=== PATIENT | female | born 1970 | race Caucasian/White ===

== ENCOUNTER → 2020-09-26 14:40 | Outpatient (BNVA) | payer OTHER, SELFPAY | PROVIDERS: PCP Physician Assistant; Visit Provider Urology | DX: Z76.89 Persons encountering health services in other specified circumstances (principal) ==

== ENCOUNTER → 2020-11-07 08:25 | Outpatient (BNVA) | payer OTHER, SELFPAY | PROVIDERS: PCP Physician Assistant; Referring Provider Physician Assistant; Visit Provider Internal Medicine Gastroenterology | DX: Z76.89 Persons encountering health services in other specified circumstances (principal) ==

== ENCOUNTER → 2021-02-06 09:19 | Outpatient (BNVA) | payer OTHER, SELFPAY | PROVIDERS: PCP Physician Assistant; Visit Provider Internal Medicine Gastroenterology ==

== ENCOUNTER → 2021-06-26 09:29 | Outpatient (BNVA) | payer OTHER, SELFPAY | PROVIDERS: PCP Physician Assistant; Visit Provider Internal Medicine Gastroenterology ==

== ENCOUNTER 2021-07-29 14:05 | Outpatient (REF) | payer OTHER, SELFPAY ==
--- NOTE | ~2021-07-29 | MR_ITS ---
EXAMINATION: MR ABDOMEN WITHOUT AND WITH CONTRAST CLINICAL INFORMATION: Chronic pancreatitis. COMPARISON: Previous MRI of the abdomen April [address] April 2019. TECHNIQUE: MR abdomen was performed without and with use of 5 mL intravenous Gadavist gadolinium contrast. Postcontrast images are performed in multiphase dynamic sequences. Imaging was performed in 3 planes. MRCP sequences were also performed. FINDINGS: LUNG BASES: There are nodules or areas atelectasis seen at the lung bases. Largest area measures 1.5 x 2.5 cm in the right lower lobe. LIVER, GALLBLADDER, AND BILIARY TREE: The liver is normal in size and contour. There is mild signal loss in the liver on pap-ts-blolg sequences suggestive of infiltration. No focal liver lesion is seen. The gallbladder is normal. There is no intrahepatic or extrahepatic biliary duct dilatation. PANCREAS: There are innumerable small cysts seen in the pancreas; many of these are near and above the main pancreatic duct. The largest cysts are in the neck of the pancreas and measure 5 mm. These again probably represent dilated biliary radicles related to previous pancreatitis. The pancreas is otherwise normal. The main pancreatic duct is normal. No pancreatic mass or abnormal signal is seen. Peripancreatic fat is normal. SPLEEN: Normal. ADRENAL GLANDS: Normal. KIDNEYS AND URETERS: There are small right renal cysts. There is a 5 mm probable complex cyst in the lower pole the left kidney. This is not well visualized on T1-weighted sequences, low signal on T2-weighted sequences and demonstrates no evidence of enhancement. GASTROINTESTINAL TRACT: No bowel obstruction. No ascites or fluid collection. ABDOMINAL WALL: No significant hernia is appreciated. LYMPH NODES: No lymphadenopathy. VASCULAR: Unremarkable. OSSEOUS STRUCTURES: Marrow signal normal. MR/MR abdomen wo/w con IMPRESSION: Innumerable small cysts in the pancreas adjacent to the main pancreatic duct, probably representing dilated biliary radicles related to previous pancreatitis. This is similar to April 2019 exam. Pulmonary nodules or areas of atelectasis at the lung bases. Correlation with patient's clinical history recommended. This could be better evaluated with chest CT scan if clinically indicated.
== END 2021-07-29 14:06 | disposition home or self-care (01) ==
LOC: HO.MRI 14:05
PROVIDERS: PCP Physician Assistant; Visit Provider Internal Medicine Gastroenterology
DX: K86.1 Other chronic pancreatitis (principal); K86.2 Cyst of pancreas
CPT/HCPCS: 74183; A9585

== ENCOUNTER → 2021-10-01 08:31 | Outpatient (BNVA) | payer OTHER, SELFPAY | PROVIDERS: PCP Physician Assistant; Visit Provider Urology ==

== ENCOUNTER → 2021-12-28 09:04 | Outpatient (BNVA) | payer OTHER, SELFPAY | PROVIDERS: PCP Physician Assistant; Visit Provider Internal Medicine Gastroenterology ==

== ENCOUNTER 2022-09-21 15:47 | Outpatient (REF) | payer OTHER, SELFPAY ==
--- NOTE | ~2022-09-21 | US_ITS ---
EXAMINATION: US RETROPERITONEAL LIMITED (RENAL ONLY) CLINICAL INFORMATION: Cyst of kidney, acquired. COMPARISON: MR abdomen without and with contrast most recent 07/29/2021. TECHNIQUE: Real-time imaging of the kidneys. FINDINGS: RIGHT KIDNEY: 10.3 x 4.5 x 5.2 cm (SAG x AP x TRV). The kidney is normal in size, contour, and echogenicity. Renal cortical thickness is normal. No calculi or focal parenchymal lesions. No hydronephrosis. LEFT KIDNEY: 9.5 x 4.2 x 4.4 cm (SAG x AP x TRV). The kidney is normal in size, contour, and echogenicity. Renal cortical thickness is normal. There is a small 3 x 4 mm simple cyst in the upper pole. No renal calculi or hydronephrosis. US/US renal BI IMPRESSION: Solitary 3 x 4 mm simple cyst in the upper pole of the left kidney. Other renal cysts seen by MRI are not appreciated by ultrasound.
== END 2022-09-21 15:48 | disposition home or self-care (01) ==
LOC: HO.US 15:47
PROVIDERS: Visit Provider Urology
DX: N28.1 Cyst of kidney, acquired (principal)
CPT/HCPCS: 76775

== ENCOUNTER 2022-10-22 08:05 | Outpatient (REF) | payer OTHER, SELFPAY ==
--- NOTE | ~2022-10-22 | MR_ITS ---
EXAMINATION: MR ABDOMEN WITHOUT AND WITH CONTRAST CLINICAL INFORMATION: Renal cyst. COMPARISON: Previous MR of the abdomen most recent July 2021 and renal ultrasound 09/21/2022. TECHNIQUE: MR abdomen was performed without and with use of 5 mL intravenous Gadavist gadolinium contrast. Postcontrast images are performed in multiphase dynamic sequences. Imaging was performed in 3 planes. FINDINGS: LUNG BASES: Increasing abnormal parenchymal density in the right lower lobe. Follow-up chest x-ray or chest CT recommended. The lungs appear well inflated. LIVER, GALLBLADDER, AND BILIARY TREE: The liver is normal in size, smooth in contour, and normal in signal. No focal hepatic lesion or biliary ductal dilatation is present. The gallbladder is not seen and has presumably been removed. PANCREAS: There are multiple small cysts in the pancreas near the main pancreatic duct similar to previous exam and probably represents dilated pancreatic radicles related to previous pancreatitis. No suspicious pancreatic lesion. SPLEEN: Normal. ADRENAL GLANDS: Normal. KIDNEYS AND URETERS: The kidneys are normal in size, shape, and enhance symmetrically. There are multiple small subcentimeter bilateral renal cysts. The previously identified 4 mm cyst in the lower pole of the left kidney is no longer seen. No hydronephrosis. No perinephric stranding. GASTROINTESTINAL TRACT: No bowel obstruction. No ascites or fluid collection. ABDOMINAL WALL: No significant hernia is appreciated. LYMPH NODES: No lymphadenopathy. VASCULAR: Unremarkable. OSSEOUS STRUCTURES: Marrow signal normal. MR/MR abdomen wo/w con IMPRESSION: Small bilateral renal cysts. Previously identified 4 mm cyst in the lower pole of the left kidney is no longer seen. Stable small pancreatic cysts probably representing dilated pancreatic duct radicles related to pancreatitis. Increasing abnormal parenchymal density in the right lower lobe. Follow-up chest x-ray or chest CT recommended.
== END 2022-10-22 08:06 | disposition home or self-care (01) ==
LOC: HO.MRI 08:05
PROVIDERS: Visit Provider Urology
DX: N28.1 Cyst of kidney, acquired (principal)
CPT/HCPCS: 74183

== ENCOUNTER → 2022-12-01 14:46 | Outpatient (BNVA) | payer OTHER, SELFPAY | PROVIDERS: PCP Physician Assistant; Visit Provider Urology | DX: N28.1 Cyst of kidney, acquired (principal) ==

== ENCOUNTER → 2023-02-14 14:11 | Outpatient (BNVA) | payer OTHER, SELFPAY | PROVIDERS: PCP Physician Assistant; Visit Provider Internal Medicine Gastroenterology | DX: Z13.89 Encounter for screening for other disorder (principal) ==

== ENCOUNTER 2023-07-25 14:23 | Outpatient (AMB) | payer OTHER, SELFPAY ==
--- NOTE | 2023-07-25 14:24 | A.OFFVIS_ITS ---
Intake Intake Visit Reasons: 4 month fu Intake Note: Patient 4 month follow up Patient denies any GI issues. [employer] Bi Developer Required: No Allergies codeine [CODEINE] Allergy (Mild, Verified 07/25/23 14:23) RASH HPI 4 month fu HPI Details ? 53 yr old f being called for f/u RECAP: ? She had been having diarrhea when initially seen 2018 ? she had egd/colonoscopy with polyps removed but no colitis or microscopic colitis ? imaging revealed chronic panc changes, igG4 was elevated and ESR high too ? MRI and Ct chest done, pancreas stable, but new lung nodule right lung --suspicious for neoplasia, --had bx and confirmed to have lung cancer, saw oncologist Inez ? she has been long time smoker ? completed XRT and chemo for lung ca and being monitored ? she did have sharp epigastric pain, once or twice every few weeks, can be severe and last for few hours ? not worse or related to food, can be better with stretching ? bloating ? denied diarrhea or constipation ? appetite had poor ? sleep is variable ? stopped trental due to diarrhea, back on creon ? stress is manageable labs: ? cbc normal, BMp normal, ESR mild raised, IgG4 mild raised, CRP neg ? stool fat neg, elastase normal Other tests: ? CT scan at [facility] recently chronic pancreatitis, no cancer recurrence ? GES 05/21/2020--nml, neg for gastroparesis ? MRI 04/2020-- panc cysts, complex hemorrhagic cysts left kidney ? EGD: DONE FOR ONGOING EARLY SATIETY--06/2020--SHORT seg barretts. reduced gastric motility noted ? bx--barretts, no dysplasia, no amyloid noted, diffuse staining for IgG4 in GEJ!no sign activity in duodenum or stomach, maybe minor in duodenum MRI 07/2020-- stable pancreas with dilated radicles She was referred to urology due to complex kidney cysts tried her on levsin for abdo pain considered trial of budeosnide if ongoing sx ? INTERIM: she has responded well to lung cancer treatment appetite has remained poor weight is stable no constipation or diarrhea she is on mag supplements she is only on pembrolizumab she has been taking the creon EXAM: GENERAL: The patient is thin, good color Assessment & Plan (1) Pancreatic cyst: (2) Renal cyst: (3) Colon polyps: (4) Chronic pancreatitis: ? 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 PFSH Medical History Cyst of ovary Surgical History History of colonoscopy Hx of endoscopy Hx of tubal ligation Hx of ultrasound guided needle biopsy of lung Family History Mother No problems noted. Father Hx of cancer of lung Social History Alcohol intake: never Cigarette Packs Per Day: 1 Cigarettes Per Day: 20 Telehealth Telehealth Location of provider rendering services: practice address Location of patient: address on file Patient Identification confirmed using: Name, : Yes Telehealth method: video Patient verbally consented to treatment: Yes Patient verbally consented to billing insurance company: Yes Patient informed of any privacy concerns related to visit: Yes Minutes spent on Phone/Video with Pt.: 7 Coding Level of Care Code Tele Est Pt Level 3 (29175) Diagnoses
== END 2023-07-25 16:32 | disposition home or self-care (01) ==
LOC: HO.HGI 14:23
PROVIDERS: PCP Physician Assistant; Visit Provider Internal Medicine Gastroenterology
DX: K86.2 Cyst of pancreas (principal); N28.1 Cyst of kidney, acquired; D12.6 Benign neoplasm of colon, unspecified; K86.1 Other chronic pancreatitis
CPT/HCPCS: 99213

== ENCOUNTER → 2023-07-25 14:23 | Outpatient (BNVA) | payer OTHER, SELFPAY | PROVIDERS: PCP Physician Assistant; Visit Provider Internal Medicine Gastroenterology ==

== ENCOUNTER 2023-10-31 13:22 | Outpatient (AMB) | payer OTHER, SELFPAY ==
[2023-10-31 13:29] VITALS: BP 103/62; PULSE 109; BMI 19.1
--- NOTE | 2023-10-31 13:29 | A.OFFVIS_ITS ---
Intake Vital Signs 10/31/23 13:29 Height 5 ft 3 in Weight 108 lb 0.424 oz BMI 19.1 BP 103/62 Blood Pressure Location Lt brachial Position Sitting Pulse 109 H Intake Visit Reasons: 4 month follow up Intake Note: Larissa presents in the office as a follow up. CC: Discomfort in her stomach, she gets full fast after eating and denies any irregular bowel movements. Allergies codeine [CODEINE] Allergy (Mild, Verified 10/31/23 13:31) RASH HPI 4 month follow up HPI Details 53 yr old f here for f/u RECAP: ? She had been having diarrhea when initially seen 2018 ? she had egd/colonoscopy with polyps removed but no colitis or microscopic colitis ? imaging revealed chronic panc changes, igG4 was elevated and ESR high too ? MRI and Ct chest done, pancreas stable, but new lung nodule right lung --suspicious for neoplasia, --had bx and confirmed to have lung cancer, saw oncologist Inez ? she has been long time smoker ? completed XRT and chemo for lung ca and being monitored ? she did have sharp epigastric pain, once or twice every few weeks, can be severe and last for few hours ? not worse or related to food, can be better with stretching ? bloating ? denied diarrhea or constipation ? appetite had poor ? sleep is variable ? stopped trental due to diarrhea, back on creon ? stress is manageable labs: ? cbc normal, BMp normal, ESR mild raised, IgG4 mild raised, CRP neg ? stool fat neg, elastase normal Other tests: ? CT scan at [facility] recently chronic pancreatitis, no cancer recurrence ? GES 05/21/2020--nml, neg for gastroparesis ? MRI 04/2020-- panc cysts, complex hemorrhagic cysts left kidney ? EGD: DONE FOR ONGOING EARLY SATIETY--06/2020--SHORT seg barretts. reduced gastric motility noted ? bx--barretts, no dysplasia, no amyloid noted, diffuse staining for IgG4 in GEJ!no sign activity in duodenum or stomach, maybe minor in duodenum MRI 07/2020-- stable pancreas with dilated radicles She was referred to urology due to complex kidney cysts tried her on levsin for abdo pain considered trial of budeosnide if ongoing sx she had recurrence of lung ca and now on kaytruda ? INTERIM: she has fatigue epigastric fullness and satiety no nausea or vomiting weight is stable no constipation or diarrhea might have some depression, EXAM: GENERAL: The patient is thin VITAL SIGNS:see workflow HEENT: Nonicteric sclerae, PERRLA, EOMI. Oropharynx clear. Moist mucous membranes. Conjunctivae appear well perfused. No thyroid mass. CHEST: Chest wall is nontender. HEART: Regular rate and rhythm without murmurs. LUNGS: Clear to auscultation bilaterally, but reeduced A/E b/l ABDOMEN: Soft, positive bowel sounds, tender epigastrium, no organomegaly.no flank tenderness SKIN: No rash, no excessive bruising, petechiae, or purpura. NEUROLOGIC: Cranial nerves II-XII intact without motor/sensory deficit. Assessment & Plan (1) Pancreatic cyst: (2) Renal cyst: (3) Colon polyps: (4) Chronic pancreatitis: ? 5/ early satiety probably functional dyspepsia 6/ relapse of lung cancer--on keytruda PLAN: 1/ Hold off on further GI IX for the mom ent, if remains in remission we can review at the next visit 2/ add remeron and see fi can help her g astric issues, weight gain and sleep --start low and titrate as tolerated --other option is marinol ? ? PFSH Medical History Cyst of ovary Surgical History History of colonoscopy Hx of endoscopy Hx of tubal ligation Hx of ultrasound guided needle biopsy of lung Family History Mother No problems noted. Father Hx of cancer of lung Social History Alcohol intake: never Cigarette Packs Per Day: 1 Cigarettes Per Day: 20 Physical Exam Vital Signs: Last Vital Signs Pulse 109 H 10/31/23 13:29 BP 103/62 10/31/23 13:29 BMI result Body Mass Index 19.1 Assessment & Plan Assessment & Plan (1) Pancreatic cyst: Code(s): K86.2 - Cyst of pancreas (2) Lung cancer: Code(s): C34.90 - Malignant neoplasm of unspecified part of unspecified bronchus or lung Plan: see above Plan see above Medications: New mirtazapine (Remeron) 15 mg PO BEDTIME 30 tabs 1RF Coding Level of Care Code Est Pt Level 3 (76659) Diagnoses Pancreatic cyst K86.2 Lung cancer C34.90
== END 2023-10-31 14:03 | disposition home or self-care (01) ==
PROVIDERS: PCP Physician Assistant; Visit Provider Internal Medicine Gastroenterology
DX: K86.2 Cyst of pancreas (principal); C34.90 Malignant neoplasm of unspecified part of unspecified bronchus or lung
CPT/HCPCS: 99213

== ENCOUNTER → 2023-10-31 13:22 | Outpatient (BNVA) | payer OTHER, SELFPAY | PROVIDERS: PCP Physician Assistant; Visit Provider Internal Medicine Gastroenterology ==

== ENCOUNTER 2024-02-06 13:37 | Outpatient (AMB) | payer MEDICAID, SELFPAY ==
--- NOTE | 2024-02-06 13:44 | MHC.OFFVIS ---
Intake Vital Signs 02/06/24 13:48 Height 5 ft 3 in Weight 110 lb 3.698 oz BMI 19.5 BP 84/62 L Blood Pressure Location Lt brachial Position Sitting Pulse 91 Intake Visit Reasons: 3 mnth follow up Intake Note: Larissa presents in the office as a 3 month follow up. CC: She states that she is not having any concerns at this time. Allergies codeine [CODEINE] Allergy (Mild, Verified 02/06/24 13:49) RASH HPI 3 mnth follow up HPI Details 53 yr old f here for f/u RECAP: She had been having diarrhea when initially seen 2018 she had egd/colonoscopy with polyps removed but no colitis or microscopic colitis imaging revealed chronic panc changes, igG4 was elevated and ESR high too MRI and Ct chest done, pancreas stable, but new lung nodule right lung --suspicious for neoplasia, --had bx and confirmed to have lung cancer, saw oncologist Inez she has been long time smoker completed XRT and chemo for lung ca and being monitored she did have sharp epigastric pain, once or twice every few weeks, can be severe and last for few hours not worse or related to food, can be better with stretching bloating denied diarrhea or constipation appetite had poor sleep is variable stopped trental due to diarrhea, back on creon stress is manageable labs: cbc normal, BMp normal, ESR mild raised, IgG4 mild raised, CRP neg stool fat neg, elastase normal Other tests: CT scan at [facility] recently chronic pancreatitis, no cancer recurrence GES 05/21/2020--nml, neg for gastroparesis MRI 04/2020-- panc cysts, complex hemorrhagic cysts left kidney EGD: DONE FOR ONGOING EARLY SATIETY--06/2020--SHORT seg barretts. reduced gastric motility noted bx--barretts, no dysplasia, no amyloid noted, diffuse staining for IgG4 in GEJ!no sign activity in duodenum or stomach, maybe minor in duodenum MRI 07/2020-- stable pancreas with dilated radicles She was referred to urology due to complex kidney cysts tried her on levsin for abdo pain considered trial of budeosnide if ongoing sx she had recurrence of lung ca and now on kaytruda INTERIM: she did not tolerate 15 mg mirtazepine but was ok with 7.5 mg her appetite is better she is doing well with kaytruda, she has liver lesion being watched, ? fatty deposit no nausea or vomiting weight is stable no constipation or diarrhea EXAM: GENERAL: The patient is thin VITAL SIGNS:see workflow HEENT: Nonicteric sclerae, PERRLA, EOMI. Oropharynx clear. Moist mucous membranes. Conjunctivae appear well perfused. No thyroid mass. CHEST: Chest wall is nontender. HEART: Regular rate and rhythm without murmurs. LUNGS: Clear to auscultation bilaterally, but reeduced A/E b/l ABDOMEN: Soft, positive bowel sounds, tender epigastrium, no organomegaly.no flank tenderness SKIN: No rash, no excessive bruising, petechiae, or purpura. NEUROLOGIC: Cranial nerves II-XII intact without motor/sensory deficit. Assessment & Plan (1) Pancreatic cyst: (2) Renal cyst: (3) Colon polyps: (4) Chronic pancreatitis: 5/ early satiety probably functional dyspepsia 6/ relapse of lung cancer--on keytruda PLAN: 1/ Hold off on further GI IX for the moment, has liver lesion being monitored, and will be on kaytruda for 1 yr at least, can review egd and colo in [facility] 2/ seems stable in terms of weight right now, can restart low dose mirtazepine or marinol PFSH Medical History Cyst of ovary Surgical History History of colonoscopy Hx of endoscopy Hx of tubal ligation Hx of ultrasound guided needle biopsy of lung Family History Mother No problems noted. Father Hx of cancer of lung Social History Alcohol intake: never Cigarette Packs Per Day: 1 Cigarettes Per Day: 20 Physical Exam Vital Signs: Last Vital Signs Pulse 91 02/06/24 13:48 BP 84/62 L 02/06/24 13:48 BMI result Body Mass Index 19.5 Assessment & Plan Assessment & Plan (1) Chronic pancreatitis: Code(s): K86.1 - Other chronic pancreatitis Plan: PLAN: 1/ Hold off on further GI IX for the moment, has liver lesion being monitored, and will be on kaytruda for 1 yr at least, can review egd and colo in [facility] 2/ seems stable in terms of weight right now, can restart low dose mirtazepine or marinol Medications: Refilled pantoprazole 40 mg PO DAILY 30 tabs 3RF Coding Level of Care Code Est Pt Level 3 (96178) Diagnoses Chronic pancreatitis K86.1
[2024-02-06 13:48] VITALS: BP 84/62; PULSE 91; BMI 19.5
== END 2024-02-06 14:09 | disposition home or self-care (01) ==
PROVIDERS: PCP Physician Assistant; Visit Provider Internal Medicine Gastroenterology
DX: K86.1 Other chronic pancreatitis (principal)
CPT/HCPCS: 99213

== ENCOUNTER → 2024-02-06 13:37 | Outpatient (BNVA) | payer OTHER, SELFPAY | PROVIDERS: PCP Physician Assistant; Visit Provider Internal Medicine Gastroenterology ==

== ENCOUNTER 2024-06-08 11:46 | Outpatient (AMB) | payer OTHER, SELFPAY ==
--- NOTE | 2024-06-08 11:49 | MHC.OFFVIS ---
Vital Signs 06/08/24 11:52 Height 5 ft 3 in Weight 114 lb 10.246 oz BMI 20.3 BP 91/58 L Blood Pressure Location Lt brachial Position Sitting Pulse 80 Intake Visit Reasons: 4 month follow up Intake Note: Larissa presents in the office as a 4 month follow up. CC: She states that she is not having any concerns. 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 Allergies codeine [CODEINE] Allergy (Mild, Verified 06/08/24 11:52) RASH HPI HPI 4 month follow up: Details: 54 yr old f here for f/u RECAP: She had been having diarrhea when initially seen 2018 she had egd/colonoscopy with polyps removed but no colitis or microscopic colitis imaging revealed chronic panc changes, igG4 was elevated and ESR high too MRI and Ct chest done, pancreas stable, but new lung nodule right lung --suspicious for neoplasia, --had bx and confirmed to have lung cancer, saw oncologist Inez she has been long time smoker completed XRT and chemo for lung ca and being monitored she did have sharp epigastric pain, once or twice every few weeks, can be severe and last for few hours not worse or related to food, can be better with stretching bloating denied diarrhea or constipation appetite had poor sleep is variable stopped trental due to diarrhea, back on creon stress is manageable labs: cbc normal, BMp normal, ESR mild raised, IgG4 mild raised, CRP neg stool fat neg, elastase normal Other tests: CT scan at [facility] recently chronic pancreatitis, no cancer recurrence GES 05/21/2020--nml, neg for gastroparesis MRI 04/2020-- panc cysts, complex hemorrhagic cysts left kidney EGD: DONE FOR ONGOING EARLY SATIETY--06/2020--SHORT seg barretts. reduced gastric motility noted bx--barretts, no dysplasia, no amyloid noted, diffuse staining for IgG4 in GEJ!no sign activity in duodenum or stomach, maybe minor in duodenum MRI 07/2020-- stable pancreas with dilated radicles She was referred to urology due to complex kidney cysts tried her on levsin for abdo pain considered trial of budeosnide if ongoing sx she had recurrence of lung ca and now on kaytruda INTERIM: she has some tiredness on pred 5 mg from oncology for energy getting regular CT scans at [facility] weight is stable, appetite is fair stool is softer, and slightly less darker than normal EXAM: GENERAL: The patient is thin VITAL SIGNS:see workflow HEENT: Nonicteric sclerae, PERRLA, EOMI. Oropharynx clear. Moist mucous membranes. Conjunctivae appear well perfused. No thyroid mass. CHEST: Chest wall is nontender. HEART: Regular rate and rhythm without murmurs. LUNGS: Clear to auscultation bilaterally, reasonable a/e ABDOMEN: Soft, positive bowel sounds, tender epigastrium, no organomegaly.no flank tenderness SKIN: No rash, no excessive bruising, petechiae, or purpura. NEUROLOGIC: Cranial nerves II-XII intact without motor/sensory deficit. Assessment & Plan (1) Pancreatic cyst: (2) Renal cyst: (3) Colon polyps: (4) Chronic pancreatitis: 5/ early satiety probably functional dyspepsia 6/ relapse of lung cancer--on keytruda PLAN: 1/ She feesl ready for colonsocopy -due to hx of polyps, will send suprep --can keep taking keytruda [facility] Medical History Cyst of ovary Surgical History Hx of ultrasound guided needle biopsy of lung Hx of endoscopy History of colonoscopy Hx of tubal ligation Family History Mother No problems noted. Father Hx of cancer of lung Social History Alcohol intake: never Cigarette Packs Per Day: 1 Cigarettes Per Day: 20 Physical Exam Vital Signs: Last Vital Signs Pulse 80 06/08/24 11:52 BP 91/58 L 06/08/24 11:52 BMI result Body Mass Index 20.3 Assessment & Plan Assessment & Plan (1) Colon polyps: Code(s): K63.5 - Polyp of colon Category: Medical Qualifiers: Colon polyp type: adenomatous Colon location: unspecified part of colon Qualified Code(s): D12.6 - Benign neoplasm of colon, unspecified Plan: colonoscopy Medications: New sodium,potassium,mag sulfates 17.5-3.13-1.6 gram (Suprep Bowel Prep Kit) DILUTE; drink 1/2 at 6-8 pm and half at 11 PM- 1AM 354 mL 0RF Coding Level of Care Code Est Pt Level 3 (97685) Diagnoses Adenomatous polyp of colon, unspecified part of colon D12.6 Colon polyp type: adenomatous Colon location: unspecified part of colon
[2024-06-08 11:52] VITALS: BP 91/58; PULSE 80; BMI 20.3
== END 2024-06-08 13:17 | disposition home or self-care (01) ==
PROVIDERS: PCP Physician Assistant; Visit Provider Internal Medicine Gastroenterology
DX: D12.6 Benign neoplasm of colon, unspecified (principal)
CPT/HCPCS: 99213

== ENCOUNTER → 2024-06-08 11:46 | Outpatient (BNVA) | payer OTHER, SELFPAY | PROVIDERS: PCP Physician Assistant; Visit Provider Internal Medicine Gastroenterology | DX: D12.6 Benign neoplasm of colon, unspecified (principal) | CPT/HCPCS: 99212 ==

== ENCOUNTER 2024-10-16 08:53 | Day surgery (SDC) | payer OTHER, SELFPAY ==
[2024-10-12 14:38] VITALS: BMI 20.4
--- NOTE | 2024-10-15 12:17 | HO.ANESPROP2 ---
Documented by User: Mirtha Schmitz NP 10/15/24 12:18 HPI - Anesthesia Eval Consult details Narrative: 54yo F for ?Colonoscopy PMFSH Active Problems Active Problems: All Active Problems Lung cancer (Acute) Simple renal cyst (Acute) Complex renal cyst (Acute) Chronic pancreatitis (Acute) Colon polyps (Acute) Pancreatic cyst (Acute) Renal cyst (Acute) Past Medical History Medical History Bilateral cataracts Lung cancer Cyst of ovary Family History Family History Mother No problems noted. Father Hx of cancer of lung Surgical History Surgical History Hx of ultrasound guided needle biopsy of lung Hx of endoscopy History of colonoscopy Hx of tubal ligation Social History Social History Alcohol intake: never Patient Tobacco Use Status: Current everyday Tobacco user Cigarette Packs Per Day: 1 Cigarettes Per Day: 20.0 Use of substances other than those prescribed or required for medical reasons: Yes Are you DNR?: No Advance Directives: No Advance Directives Information Provided: Yes Advance Directives on File: No Recently lost weight without trying: No Nutrition Risks: No Nutritional Risk Patient : No Meds Allergies Allergy/AdvReac Type Severity Reaction Status Date / Time codeine [CODEINE] Allergy Mild RASH Verified 06/08/24 11:52 Home Medications ?Medication ?Instructions ?Recorded ?Confirmed ?Last Taken ?Type albuterol sulfate 90 mcg/actuation 2 puff inhalation QID PRN wheezing 09/26/20 10/12/24 Unknown History aerosol inhaler fluticasone fur. 200 mcg-umeclid 1 ea inhalation DAILY 12/28/21 10/12/24 Unknown History 62.5 mcg-vilant 25 mcg inhalat.powder (Trelegy Ellipta) duloxetine 20 mg capsule,delayed 20 mg PO DAILY 09/27/22 12/01/22 Unknown History release cholecalciferol (vitamin D3) 50 50 mcg PO DAILY 02/14/23 Unknown History mcg (2,000 unit) capsule hyoscyamine sulfate 0.125 mg tablet 0.125 mg PO BID-QID PRN 03/20/23 Unknown History magnesium oxide 400 mg (241.3 mg 400 mg PO DAILY 07/25/23 10/12/24 Unknown History magnesium) tablet ipratropium bromide 21 mcg (0.03 1 spray intranasal DAILY 10/31/23 10/12/24 Unknown History %) nasal spray benzonatate 100 mg capsule 100 mg PO BID PRN Cough 02/06/24 10/12/24 Unknown History cetirizine 10 mg capsule (All Day 10 mg PO DAILY PRN 02/06/24 Unknown History Allergy (cetirizine)) budesonide 3 mg 3 mg PO DAILY 06/08/24 10/12/24 Unknown History capsule,delayed,extended release Exam Height,Weight and Vital Signs: Height 5 ft 3 in Weight 52.163 kg Assessment and Plan Assessment Anesthesia Assessment: Chart Reviewed Documented by User: Tari Mcnulty MD 10/16/24 10:21 PMFSH Past Medical History Medical History Bilateral cataracts Lung cancer Cyst of ovary Family History Family History Mother No problems noted. Father Hx of cancer of lung Surgical History Surgical History Hx of ultrasound guided needle biopsy of lung Hx of endoscopy History of colonoscopy Hx of tubal ligation History of Problems with Anesthesia: No Social History Social History Alcohol intake: never Patient Tobacco Use Status: Current everyday Tobacco user Cigarette Packs Per Day: 1 Cigarettes Per Day: 20.0 Use of substances other than those prescribed or required for medical reasons: Yes Are you DNR?: No Advance Directives: No Advance Directives Information Provided: Yes Advance Directives on File: No Recently lost weight without trying: No Nutrition Risks: No Nutritional Risk Patient : No Meds Allergies Allergy/AdvReac Type Severity Reaction Status Date / Time codeine [CODEINE] Allergy Mild RASH Verified 06/08/24 11:52 Home Medications ?Medication ?Instructions ?Recorded ?Confirmed ?Last Taken ?Type albuterol sulfate 90 mcg/actuation 2 puff inhalation QID PRN wheezing 09/26/20 10/12/24 Unknown History aerosol inhaler fluticasone fur. 200 mcg-umeclid 1 ea inhalation DAILY 12/28/21 10/12/24 Unknown History 62.5 mcg-vilant 25 mcg inhalat.powder (Trelegy Ellipta) duloxetine 20 mg capsule,delayed 20 mg PO DAILY 09/27/22 12/01/22 Unknown History release cholecalciferol (vitamin D3) 50 50 mcg PO DAILY 02/14/23 Unknown History mcg (2,000 unit) capsule hyoscyamine sulfate 0.125 mg tablet 0.125 mg PO BID-QID PRN 02/14/23 Unknown History magnesium oxide 400 mg (241.3 mg 400 mg PO DAILY 07/25/23 10/12/24 Unknown History magnesium) tablet ipratropium bromide 21 mcg (0.03 1 spray intranasal DAILY 10/31/23 10/12/24 Unknown History %) nasal spray benzonatate 100 mg capsule 100 mg PO BID PRN Cough 02/06/24 10/12/24 Unknown History cetirizine 10 mg capsule (All Day 10 mg PO DAILY PRN 02/06/24 Unknown History Allergy (cetirizine)) budesonide 3 mg 3 mg PO DAILY 06/08/24 10/12/24 Unknown History capsule,delayed,extended release Exam Airway Mallampati Class: II TM Dist: >3cm Neck ROM: Full Denture: Upper Partial: Lower Loose/Missing/Broken Teeth: Yes, Upper and Lower Heart: RRR Lungs: distant BS Assessment and Plan Assessment Anesthesia Assessment: Anesthesia Plan Discussed Final Anesthetic Review History of Problems with Anesthesia: No NPO: Yes ASA Class: III Final Preanesthetic Review: Meds/Allgs Chart Reviewed, Consent Obtained/Reviewed and Anes Risks/Benef Reviewed Patient Risk: Intermediate Procedure Risk: Low Anesthetic Plan Anesthetic Plan: MAC: Disposition: Standard PACU
[2024-10-16 09:52] VITALS: BMI 20.5
[2024-10-16 09:59] VITALS: BP 110/76; PULSE 110; RESP 16; TEMP 37.1; O2SAT 96
--- NOTE | 2024-10-16 10:07 | P.HPSUR_ITS ---
Pre-Procedural Eval Section A - 24 Hr Update-Section A only Date of Service: 10/16/24 Section B - Complete if H&P > 30 days Chief Complaint: Polyp of colon Relevant Family History (Specify if Yes): No Relevant Social History: Tobacco Use Present Medications: see Short Stay Collaborative assessment Medical History: Significant History (Lung cancer Cyst of ovary) History of Previous Operations: Relevant previous surgery/procedure and date(s) ( Hx of ultrasound guided needle biopsy of lung Hx of endoscopy History of colonoscopy Hx of tubal ligation) Allergies: Allergies Allergy/AdvReac Type Severity Reaction Status Date / Time codeine [CODEINE] Allergy Mild RASH Verified 06/08/24 11:52 Review of Systems Sugical H&P ROS: Negative: Constitution, Cardiovascular, Respiratory, Neurological, Psychiatric, Hem-Onc, Allergic/Immunologic, Gastrointestinal, Dawna tourinary, Musculoskeletal, Integumentary, Endocrine and Eyes/Ears/Nose/Throat Exam Surgical H&P Exam: Normal: HEENT, Normal: Heart, Normal: Lungs, Normal: Extremities, Normal: Abdomen, Normal: Skin and Normal: Neurological Plan Diagnosis/Plan: Unchanged I have reviewed the history and physical and performed a pertinent physical examination on my patient. No changes have occurred unless specified. Time Spent With Patient Time: Total time managing care of this patient today ____ minutes.
[2024-10-16] MEDS: Lactated Ringers 1,000 ML 100 ML IVCONT (10:22)
--- NOTE | 2024-10-16 10:22 | HO.OPN-COLON ---
Colonoscopy Operative Note Operative Note Date of Service: 10/16/24 Narrative: Operative Information Procedure Description: Colonoscopy Indication: hx of colon polyps Anesthesia: MAC COLONOSCOPY Instrument: Olympus variable stiffness pediatric scope 190L Colonoscopy Monitoring: Vital signs and clinical assessment, continuous EKG monitoring, Pulse oximetry, Carbon Dioxide monitoring and blood pressure monitoring were done throughout the procedure. Colon withdrawal time was 13 minutes. Procedure: The patient was placed in the left lateral decubitis position and pre-procedure medications were administered. After a digital rectal examination of the ano-rectum, the video colonoscope was inserted into the rectum and advanced through the colon to the cecum/TI. The colonoscope was slowly withdrawn in a retrograde panoramic fashion and the colon mucosa was carefully examined including a retroflexed view of the rectum. Findings and interventions are described below. Procedure Difficulty: moderate Findings: Terminal Ileum-not intubated Cecum:normal Ascending Colon: normal Transverse Colon - x 2 sessile polyps 5-9 mm removed with cold snare, one was not retrieved Descending Colon:normal Sigmoid Colon: mild to moderate diverticulosis Rectum: Retroflexion with small internal hemorrhoids seen, grade I Anorectum - normal Intervention: cold snare Colon preparation: [place] Bowel Preparation Scale Right colon; 1-2 Transverse colon: 1-2 Left colon; 1-2 (0 = Unprepared colon segment with mucosa not seen due to solid stool that cannot be cleared. 1 = Portion of mucosa of the colon segment seen, but other areas of the colon segment not well seen due to staining, residual stool and/or opaque liquid. 2 = Minor amount of residual staining, small fragments of stool and/or opaque liquid, but mucosa of colon segment seen well. 3 = Entire mucosa of colon segment seen well with no residual staining, small fragments of stool or opaque liquid) Impression and Post Procedure Diagnosis: diverticulosis colon polyps internal hemorrhoids Plan: High fiber diet leaflet Avoid straining at stool, epsom salts and sitz bath, anusol supps or cream Repeat Colonoscopy in 6-12 months due to fair to poor prep or earlier if clinically indicated -next time consider 2d of clears Above findings were reviewed with the patient and relevant handouts were provided if indicated.
[2024-10-16 11:02] VITALS: BP 120/67; PULSE 97; RESP 18; TEMP 36.2; O2SAT 95
[2024-10-16 11:17] VITALS: BP 120/67; PULSE 97; RESP 18; TEMP 36.2; O2SAT 95
== END 2024-10-16 11:48 | disposition home or self-care (01) ==
PROVIDERS: PCP Physician Assistant; Visit Provider Internal Medicine Gastroenterology
PROC: 0DJD8ZZ Inspection of Lower Intestinal Tract, Via Natural or Artificial Opening Endoscopic (ICD-10-PCS; CPT 45378; principal; 2024-10-16 10:40)
DX: Z12.11 Encounter for screening for malignant neoplasm of colon (principal); D12.3 Benign neoplasm of transverse colon; K57.30 Diverticulosis of large intestine without perforation or abscess without bleeding; K64.0 First degree hemorrhoids; Z86.0101 Personal history of adenomatous and serrated colon polyps; C34.90 Malignant neoplasm of unspecified part of unspecified bronchus or lung; F17.210 Nicotine dependence, cigarettes, uncomplicated; Z79.899 Other long term (current) drug therapy
CPT/HCPCS: 45385; 88305; J2250; J2704

== ENCOUNTER → 2024-10-16 08:53 | Outpatient (BNV) | payer OTHER, SELFPAY | PROVIDERS: PCP Physician Assistant; Visit Provider Internal Medicine Gastroenterology | DX: Z12.11 Encounter for screening for malignant neoplasm of colon (principal); Z86.0100 Personal history of colon polyps, unspecified; D12.3 Benign neoplasm of transverse colon; K57.30 Diverticulosis of large intestine without perforation or abscess without bleeding | CPT/HCPCS: 45385 ==

== ENCOUNTER 2025-02-04 11:02 | Outpatient (AMB) | payer OTHER, SELFPAY ==
--- NOTE | 2025-02-04 11:02 | MHC.OFFVIS ---
Vital Signs 02/04/25 11:04 Height 5 ft 2 in Weight 101 lb 6.602 oz BMI 18.5 BP 115/70 Blood Pressure Location Lt brachial Position Sitting Pulse 109 H Intake Visit Reasons: S/P colonoscopy Intake Note: Larissa presents in the office to go over results to her colonosscopy. CC: she states she knows she needs another one. no other concerns. Hand Assembler Required: No Allergies codeine [CODEINE] Allergy (Mild, Verified 02/04/25 11:05) RASH HPI HPI S/P colonoscopy: Details: 54 yr old f here for f/u RECAP: She had been having diarrhea when initially seen 2018 she had egd/colonoscopy with polyps removed but no colitis or microscopic colitis imaging revealed chronic panc changes, igG4 was elevated and ESR high too MRI and Ct chest done, pancreas stable, but new lung nodule right lung --suspicious for neoplasia, --had bx and confirmed to have lung cancer, saw oncologist Inez she has been long time smoker completed XRT and chemo for lung ca and being monitored she did have sharp epigastric pain, once or twice every few weeks, can be severe and last for few hours not worse or related to food, can be better with stretching bloating denied diarrhea or constipation appetite had poor sleep is variable stopped trental due to diarrhea, back on creon stress is manageable labs: cbc normal, BMp normal, ESR mild raised, IgG4 mild raised, CRP neg stool fat neg, elastase normal Other tests: [facility] scan at [facility] recently chronic pancreatitis, no cancer recurrence GES 05/21/2020--nml, neg for gastroparesis MRI 04/2020-- panc cysts, complex hemorrhagic cysts left kidney EGD: DONE FOR ONGOING EARLY SATIETY--06/2020--SHORT seg barretts. reduced gastric motility noted bx--barretts, no dysplasia, no amyloid noted, diffuse staining for IgG4 in GEJ!no sign activity in duodenum or stomach, maybe minor in duodenum MRI 07/2020-- stable pancreas with dilated radicles She was referred to urology due to complex kidney cysts tried her on levsin for abdo pain considered trial of budeosnide if ongoing sx she had recurrence of lung ca and now on kaytruda I did colonoscopy 10/21-- TA removed x 2 but prep was not v good INTERIM: constant surveillance for her lung ca she has a lot of bowel movement, formed stools, taking the creon appetite is fair no abdominal pain weight 10# lower than before, unclear why she had recent cT abdo and chest at [facility] and one new nodule was seen EXAM: GENERAL: The patient is thin VITAL SIGNS:see workflow HEENT: Nonicteric sclerae, PERRLA, EOMI. Oropharynx clear. Moist mucous membranes. Conjunctivae appear well perfused. No thyroid mass. CHEST: Chest wall is nontender. HEART: Regular rate and rhythm without murmurs. LUNGS: Clear to auscultation bilaterally, reasonable a/e ABDOMEN: Soft, positive bowel sounds, tender epigastrium, no organomegaly.no flank tenderness SKIN: No rash, no excessive bruising, petechiae, or purpura. NEUROLOGIC: Cranial nerves II-XII intact without motor/sensory deficit. Assessment & Plan (1) Pancreatic cyst: (2) Renal cyst: (3) Colon polyps: (4) Chronic pancreatitis: 5/ early satiety probably functional dyspepsia 6/ relapse of lung cancer--on keytruda PLAN: 1/ r/s colo and add EGD, she wants to try 2d clears next time--sent [facility] Medical History Bilateral cataracts Lung cancer Cyst of ovary Surgical History Hx of ultrasound guided needle biopsy of lung Hx of endoscopy History of colonoscopy Hx of tubal ligation Family History Mother No problems noted. Father Hx of cancer of lung Social History Alcohol intake: never Patient Tobacco Use Status: Current everyday Tobacco user Cigarette Packs Per Day: 1 Cigarettes Per Day: 20.0 Physical Exam Vital Signs: Last Vital Signs Pulse 109 H 02/04/25 11:04 BP 115/70 02/04/25 11:04 BMI result Body Mass Index 18.5 Assessment & Plan Assessment & Plan (1) Colon polyps: Code(s): K63.5 - Polyp of colon Category: Medical Qualifiers: Colon polyp type: adenomatous Colon location: unspecified part of colon Qualified Code(s): D12.6 - Benign neoplasm of colon, unspecified Plan: as above (2) Abnormal bowel habits: Code(s): R19.8 - Other specified symptoms and signs involving the digestive system and abdomen Category: Medical Plan: as above Medications: New peg 3350-electrolytes 236-22.74-6.74 -5.86 gram (Golytely) until fecal effluent is clear 240 mL PO Q10M 4,000 mL 0RF Coding Level of Care Code Est Pt Level 3 (31673) Diagnoses Adenomatous polyp of colon, unspecified part of colon D12.6 Colon polyp type: adenomatous Colon location: unspecified part of colon Abnormal bowel habits R19.8
[2025-02-04 11:04] VITALS: BP 115/70; PULSE 109; BMI 18.5
== END 2025-02-04 11:28 | disposition home or self-care (01) ==
PROVIDERS: PCP Physician Assistant; Visit Provider Internal Medicine Gastroenterology
DX: D12.6 Benign neoplasm of colon, unspecified (principal); R19.8 Other specified symptoms and signs involving the digestive system and abdomen
CPT/HCPCS: 99213

== ENCOUNTER → 2025-02-04 11:02 | Outpatient (BNVA) | payer OTHER, SELFPAY | PROVIDERS: PCP Physician Assistant; Visit Provider Internal Medicine Gastroenterology | DX: D12.6 Benign neoplasm of colon, unspecified (principal); R19.8 Other specified symptoms and signs involving the digestive system and abdomen | CPT/HCPCS: 99212 ==

== ENCOUNTER 2025-04-04 06:17 | Day surgery (SDC) | payer OTHER, SELFPAY ==
[2025-04-02 12:36] VITALS: BMI 18.5
--- NOTE | 2025-04-03 09:29 | P.CONAN_ITS ---
HPI - Anesthesia Eval Consult details Narrative: 55yo F for Upper Endoscopy and Colonoscopy Active Lung ca s/p chemo and rad - follows [facility] oncology and pulmo. Continues to smoke PMFSH Active Problems Active Problems: All Active Problems Abnormal bowel habits (Acute) Lung cancer (Acute) Simple renal cyst (Acute) Complex renal cyst (Acute) Chronic pancreatitis (Acute) Colon polyps (Acute) Pancreatic cyst (Acute) Renal cyst (Acute) Past Medical History Medical History (Updated 04/02/25 @ 12:46 by Denise Baldwin RN) Pathological fracture of rib Chronic pancreatitis Hepatic steatosis COPD (chronic obstructive pulmonary disease) Pancreatic cyst Lung cancer Renal cyst Cyst of ovary Family History Family History Mother No problems noted. Father Hx of cancer of lung Surgical History Surgical History (Updated 04/02/25 @ 12:46 by Denise Baldwin RN) Hx of appendectomy Hx of cataract extraction Hx of ultrasound guided needle biopsy of lung Hx of endoscopy History of colonoscopy Hx of tubal ligation History of Problems with Anesthesia: No Social History Social History Alcohol intake: never Patient Tobacco Use Status: Current everyday Tobacco user Cigarette Packs Per Day: 1 Cigarettes Per Day: 20.0 Meds Allergies Allergy/AdvReac Type Severity Reaction Status Date / Time codeine [CODEINE] Allergy Mild RASH Verified 02/04/25 11:05 Home Medications ?Medication ?Instructions ?Recorded ?Confirmed ?Last Taken ?Type albuterol sulfate 90 mcg/actuation 2 puff inhalation QID PRN wheezing 09/26/20 04/02/25 Unknown History aerosol inhaler fluticasone fur. 200 mcg-umeclid 1 ea inhalation DAILY 12/28/21 04/02/25 Unknown History 62.5 mcg-vilant 25 mcg inhalat.powder (Trelegy Ellipta) duloxetine 20 mg capsule,delayed 20 mg PO DAILY 09/27/22 12/01/22 Unknown History release cholecalciferol (vitamin D3) 50 50 mcg PO DAILY 02/14/23 04/02/25 Unknown His tory mcg (2,000 unit) capsule magnesium oxide 400 mg (241.3 mg 400 mg PO DAILY 07/25/23 04/02/25 Unknown History magnesium) tablet cetirizine 10 mg capsule (All Day 10 mg PO DAILY PRN allergies 02/06/24 04/02/25 Unknown History Allergy (cetirizine)) pembrolizumab 25 mg/mL intravenous 200 mg IV Q3W 04/02/25 04/02/25 Unknown History solution Exam Height,Weight and Vital Signs: Height 5 ft 2 in Weight 45.813 kg Assessment and Plan Assessment Anesthesia Assessment: Chart Reviewed Final Anesthetic Review History of Problems with Anesthesia: No
[2025-04-04] VITALS (7 sets, daily range): BP systolic 122–138; BP diastolic 63–80; PULSE 99–109; RESP 16–17; TEMP 36.6–37.2; O2SAT 96–100; BMI 18.7
[2025-04-04] MEDS: Lactated Ringers 1,000 ML 100 ML IVCONT (06:42)
--- NOTE | 2025-04-04 06:45 | MHC.SHP ---
Pre-Procedural Eval Section A - 24 Hr Update-Section A only Date of Service: 04/04/25 Section B - Complete if H&P > 30 days Chief Complaint: Other specified symptoms and signs,neoplasm colon Relevant Family History (Specify if Yes): No Relevant Social History: Tobacco Use Present Medications: see Short Stay Collaborative assessment Medical History: Significant History (Bilateral cataracts Lung cancer Cyst of ovary) History of Previous Operations: Relevant previous surgery/procedure and date(s) ( Hx of ultrasound guided needle biopsy of lung Hx of endoscopy History of colonoscopy Hx of tubal ligation) Allergies: Allergies Allergy/AdvReac Type Severity Reaction Status Date / Time codeine [CODEINE] Allergy Mild RASH Verified 02/04/25 11:05 Review of Systems Sugical H&P ROS: Negative: Constitution, Cardiovascular, Respiratory, Neurological, Psychiatric, Hem-Onc, Allergic/Immunologic, Gastrointestinal, Genitourinary, Musculoskeletal, Integumentary, Endocrine and Eyes/Ears/Nose/Throat Exam Surgical H&P Exam: Normal: HEENT, Normal: Heart, Normal: Lungs, Normal: Extremities, Normal: Abdomen, Normal: Skin and Normal: Neurological Plan Diagnosis/Plan: Unchanged I have reviewed the history and physical and performed a pertinent physical examination on my patient. No changes have occurred unless specified. Time Spent With Patient Time: Total time managing care of this patient today ____ minutes.
[2025-04-04] MEDS: Albuterol Sulfate (0.083%) 2.5 MG/3 ML VIAL.NEB INHALE (06:50)
--- NOTE | 2025-04-04 07:35 | P.CONAN_ITS ---
[facility] Active Problems Active Problems: All Active Problems Abnormal bowel habits (Acute) Lung cancer (Acute) Simple renal cyst (Acute) Complex renal cyst (Acute) Chronic pancreatitis (Acute) Colon polyps (Acute) Pancreatic cyst (Acute) Renal cyst (Acute) Past Medical History Medical History Pathological fracture of rib Chronic pancreatitis Hepatic steatosis COPD (chronic obstructive pulmonary disease) Pancreatic cyst Lung cancer Renal cyst Cyst of ovary Functional capacity: independent ambulation Patient : No Family History Family History Mother No problems noted. Father Hx of cancer of lung Family history of problems with anesthesia: No Surgical History Surgical History Hx of appendectomy Hx of cataract extraction Hx of ultrasound guided needle biopsy of lung Hx of endoscopy History of colonoscopy Hx of tubal ligation History of Problems with Anesthesia: No Social History Social History Are you a primary health care analyst to a significant other at home: No Do you presently have visiting nurse or other home services: No Alcohol intake: never Patient Tobacco Use Status: Current everyday Tobacco user Tobacco use type: Cigarette Cigarette Packs Per Day: 1 Cigarettes Per Day: 20.0 Smoked in Last 30 Days: Yes Patient Interested in Nicotine Replacement: No Substance Use Frequency: Daily Have you been hit, kicked, punched, or otherwise hurt by someone within the past year? If so, by whom?: No Are you DNR?: No Advance Directives: No Advance Directives Information Provided: Yes Poor oral hygiene: Yes Meds Allergies Allergy/AdvReac Type Severity Reaction Status Date / Time codeine [CODEINE] Allergy Mild RASH Verified 04/04/25 07:01 Active Medications: Current Medications Albuterol Sulfate (Albuterol Sulfate (0.083%) 2.5 Mg/3 Ml Vial.Neb) 2.5 mg INHALE ONCE PRN PRN Reason: Shortness of Breath/Wheezing Last Admin: 04/04/25 06:50 Dose: 2.5 mg Lactated Ringer's (Lr) 1,000 mls @ 100 mls/hr IVCONT .Q10H ELLIE Last Admin: 04/04/25 06:42 Dose: 100 mls/hr Home Medications ?Medication ?Instructions ?Recorded ?Confirmed ?Last Taken ?Type albuterol sulfate 90 mcg/actuation 2 puff inhalation QID PRN wheezing 09/26/20 04/02/25 04/04/25 History aerosol inhaler fluticasone fur. 200 mcg-umeclid 1 ea inhalation DAILY 12/28/21 04/02/25 Unknown History 62.5 mcg-vilant 25 mcg inhalat.powder (Trelegy Ellipta) cholecalciferol (vitamin D3) 50 50 mcg PO DAILY 02/14/23 04/02/25 Unknown History mcg (2,000 unit) capsule magnesium oxide 400 mg (241.3 mg 400 mg PO DAILY 07/25/23 04/02/25 Unknown History magnesium) tablet cetirizine 10 mg capsule (All Day 10 mg PO DAILY PRN allergies 02/06/24 04/02/25 Unknown History Allergy (cetirizine)) pembrolizumab 25 mg/mL intravenous 200 mg IV Q3W 04/02/25 04/02/25 Unknown History solution Exam Height,Weight and Vital Signs: Height 5 ft 2 in Weight 46.4 kg Last Vital Signs Temp 98.2 F 04/04/25 06:52 Pulse 102 H 04/04/25 06:52 Resp 16 04/04/25 06:52 BP 123/63 04/04/25 06:52 Pulse Ox 96 04/04/25 06:52 O2 Del Method Room Air 04/04/25 06:52 Airway Mallampati Class: II TM Dist: >3cm Neck ROM: Full Heart: RRR Lungs: ronchi R upper Assessment and Plan Assessment Anesthesia Assessment: Anesthesia Plan Discussed, Smoking Cess. Discussed and Chart Reviewed Final Anesthetic Review Family History of Problems with Anesthesia: No History of Problems with Anesthesia: No NPO: Yes ASA Class: III Final Preanesthetic Review: Meds/Allgs Chart Reviewed, Consent Obtained/Reviewed and Anes Risks/Benef Reviewed Patient Risk: Intermediate Procedure Risk: Low Anesthetic Plan Anesthetic Plan: MAC: Disposition: Standard PACU
--- NOTE | 2025-04-04 08:18 | P.OPN-COLO_ITS ---
Colonoscopy Operative Note Operative Note Date of Service: 04/04/25 Narrative: Operative Information Procedure Description: EGD, Colonoscopy Indication: satiety and hx of colon polyps Anesthesia: MAC FLEXIBLE TRANSORAL UPPER GASTROINTESTINAL ENDOSCOPY AND COLONOSCOPY PROCEDURE NOTE UPPER ENDOSCOPY Consent: Indications for the procedure and potential complications of bleeding, perforation, reaction to medications and missed diagnosis were discussed with the patient and informed consent was obtained. Instrument: Olympus GIF H 190 J mid size upper endoscope Monitoring: Vital signs and clinical assessment, continuous EKG monitoring, Pulse oximetry, Carbon Dioxide monitoring and blood pressure monitoring were done throughout the procedure. Procedure: The patient was placed in the left lateral decubitis position and pre-procedure medications were administered and a bite block was placed. The endoscope was inserted into the mouth and advanced under direct vision to the third part of duodenum. A careful inspection was made as the upper endoscope was withdrawn including a retroflexed examination of the proximal stomach; Findings and interventions are described below. Findings: Larynx:normal Esophagus: GE junction at 42 cm, diaphragm hiatus at 42 cm, patchy erythema at GEJ, possible short segment barretts- bx taken -- LES was dilated to 20 mm with balloon-- inlet patch noted Stomach: Patchy erythema. Biopsies were obtained. Grade 2 flap valve on retroflexed examination of the cardia. The pylorus was dilated using wire guided balloon to 20 mm - no tears seen but resistance felt Duodenum: bulbar duodenitis, bx taken-- sweep was tight ? compression from SMA Intervention: Biopsies as noted above, balloon dilation wire and non wire guided COLONOSCOPY Instrument: Olympus variable stiffness pediatric scope 190L Colonoscopy Monitoring: Vital signs and clinical assessment, continuous EKG monitoring, Pulse oximetry, Carbon Dioxide monitoring and blood pressure monitoring were done throughout the procedure. Colon withdrawal time was 12 minutes. Procedure: The patient was placed in the left lateral decubitis position and pre-procedure medications were administered. After a digital rectal examination of the ano-rectum, the video colonoscope was inserted into the rectum and advanced through the colon to the cecum/TI. The colonoscope was slowly withdrawn in a retrograde panoramic fashion and the colon mucosa was carefully examined including a retroflexed view of the rectum. Findings and interventions are described below. Procedure Difficulty:moderate Findings: Terminal Ileum-not intubated Cecum:normal Right sided retro- normal Ascending Colon: normal Transverse Colon -normal Descending Colon:normal Sigmoid Colon: x 2 sessile polyps 8-10 mm removed with cold snare Rectum: Retroflexion with small internal hemorrhoids, grade I, x 4 sessile polyps 5-7 mm removed with cold snare Anorectum - normal Colon preparation: [place] Bowel Preparation Scale Right colon; 2 Transverse colon: 2 Left colon; 2 (0 = Unprepared colon segment with mucosa not seen due to solid stool that cannot be cleared. 1 = Portion of mucosa of the colon segment seen, but other areas of the colon segment not well seen due to staining, residual stool and/or opaque liquid. 2 = Minor amount of residual staining, small fragments of stool and/or opaque liquid, but mucosa of colon segment seen well. 3 = Entire mucosa of colon segment seen well with no residual staining, small fragments of stool or opaque liquid) Impression and Post Procedure Diagnosis: Endoscopy Findings: gastritis duodenitis esophagitis inlet patch Colonoscopy Findings: colon polyps internal hemorrhoids Plan: Await Pathology results Repeat Colonoscopy in 2-3 years due to prior hx of polyps or earlier if clinically indicated High fiber diet leaflet avoid straining at stool, epsom salts and sitz bath, anusol supps or cream get Ct scan reports from [facility] Above findings were reviewed with the patient and relevant handouts were provided if indicated.
--- NOTE | 2025-04-04 09:54 | HO.POSTANES ---
Post Anesthesia Evaluation Post Anesthesia Evaluation Date of Service: 04/04/25 Vital Signs: Vital Signs Temp Pulse Resp BP Pulse Ox O2 Del Method 04/04/25 09:00 98.9 F 99 17 124/72 96 Room Air 04/04/25 08:44 104 H 16 126/80 100 Room Air 04/04/25 08:39 103 H 16 129/72 100 Room Air 04/04/25 08:34 103 H 16 138/73 100 Room Air 04/04/25 08:29 106 H 16 123/74 100 Room Air 04/04/25 08:24 97.8 F 109 H 16 122/65 100 Room Air 04/04/25 06:52 98.2 F 102 H 16 123/63 96 Room Air Anesthesia: Monitored Mental Status: Awake Pain Control: Satisfactory Nausea/Vomiting: None Hydration: Adequate Anesthesia-Related Issues: No Anes. Related Issues
== END 2025-04-04 09:39 | disposition home or self-care (01) ==
PROVIDERS: PCP Nurse Practitioner Family; Visit Provider Internal Medicine Gastroenterology
PROC: (CPT 45385; principal; 2025-04-04 07:30)
DX: R19.4 Change in bowel habit (principal); D12.8 Benign neoplasm of rectum; K64.0 First degree hemorrhoids; Z86.0101 Personal history of adenomatous and serrated colon polyps; R68.81 Early satiety; K29.60 Other gastritis without bleeding; K29.80 Duodenitis without bleeding; K20.80 Other esophagitis without bleeding; Q39.8 Other congenital malformations of esophagus; J44.9 Chronic obstructive pulmonary disease, unspecified; Z85.118 Personal history of other malignant neoplasm of bronchus and lung
CPT/HCPCS: 45385; 43245; 43249; 43239; 88305; 88342; C1726; J2003; J2704

== ENCOUNTER → 2025-04-04 06:17 | Outpatient (BNV) | payer OTHER, SELFPAY | PROVIDERS: PCP Nurse Practitioner Family; Visit Provider Internal Medicine Gastroenterology | DX: Z12.11 Encounter for screening for malignant neoplasm of colon (principal); Z86.0100 Personal history of colon polyps, unspecified; K63.5 Polyp of colon; D12.8 Benign neoplasm of rectum; R68.81 Early satiety; K29.70 Gastritis, unspecified, without bleeding; K29.80 Duodenitis without bleeding; K20.90 Esophagitis, unspecified without bleeding; K31.1 Adult hypertrophic pyloric stenosis | CPT/HCPCS: 43239; 43245; 43249; 45385 ==

== ENCOUNTER 2025-06-17 11:18 | Outpatient (AMB) | payer OTHER, SELFPAY ==
--- NOTE | 2025-06-17 11:18 | MHC.OFFVIS ---
Intake Visit Reasons: LLQ Cramping Intake Note: Lraissa presents as a telehealth for her LLQ cramps = states she is also losing weight. 98lbs currently. CC: Cramping in the LLQ but she states that she does not have constipation or diarrhea but more luike mucus in her stools. Resawyer Required: No Allergies codeine (CODEINE) Allergy (Mild, Verified 04/04/25 07:01) RASH HPI HPI LLQ Cramping: Details: 55 yr old f called for f/u RECAP: She had been having diarrhea when initially seen 2018 she had egd/colonoscopy with polyps removed but no colitis or microscopic colitis imaging revealed chronic panc changes, igG4 was elevated and ESR high too MRI and Ct chest done, pancreas stable, but new lung nodule right lung --suspicious for neoplasia, --had bx and confirmed to have lung cancer, saw oncologist Inez she has been long time smoker completed XRT and chemo for lung ca and being monitored she did have sharp epigastric pain, once or twice every few weeks, can be severe and last for few hours not worse or related to food, can be better with stretching bloating denied diarrhea or constipation appetite had poor sleep is variable stopped trental due to diarrhea, back on creon stress is manageable labs: cbc normal, BMp normal, ESR mild raised, IgG4 mild raised, CRP neg stool fat neg, elastase normal Other tests: [facility] [place] recently chronic pancreatitis, no cancer recurrence [facility] 05/21/2020--nml, neg for gastroparesis MRI 04/2020-- panc cysts, complex hemorrhagic cysts left kidney EGD: DONE FOR ONGOING EARLY SATIETY--06/2020--SHORT seg barretts. reduced gastric motility noted bx--barretts, no dysplasia, no amyloid noted, diffuse staining for IgG4 in GEJ!no sign activity in duodenum or stomach, maybe minor in duodenum MRI 07/2020-- stable pancreas with dilated radicles She was referred to urology due to complex kidney cysts tried her on levsin for abdo pain considered trial of budeosnide if ongoing sx she had recurrence of lung ca and now on kaytruda I did colonoscopy 10/21-- TA removed x 2 but prep was not v good EGD/[place] : 04/21 Endoscopy Findings: gastritis duodenitis esophagitis inlet patch Colonoscopy Findings: colon polyps internal hemorrhoids Ballon dilation of esophagus, and pylorus, bx with minimal inflammation tubular adenoma and hyperplastic polyps removed INTERIM: she had some stomach upset after endoscopies had CT imaging with fundic thickening, but bx were ok trying protein shakes now explained she might have SMA syndrome based on appearances of EGD Assessment & Plan (1) Pancreatic cyst: (2) Renal cyst: (3) Colon polyps: (4) Chronic pancreatitis: 5/ early satiety 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 Father Hx of cancer of lung Social History Are you a primary laboratory animal caretaker to a significant other at home: No Do you presently have visiting nurse or other home services: No Alcohol intake: never Patient Tobacco Use Status: Current everyday Tobacco user Tobacco use type: Cigarette Cigarette Packs Per Day: 1 Cigarettes Per Day: 20.0 Telehealth Telehealth Telehealth Platform: Telephone Location of provider rendering services: practice address Location of patient: address on file Patient Identification confirmed using: Name, : Yes Telehealth method: voice only Patient verbally consented to treatment: Yes Patient verbally consented to billing insurance company: Yes Patient informed of any privacy concerns related to visit: Yes Minutes spent on Phone/Video with Pt.: 7 Assessment & Plan Assessment & Plan (1) Chronic pancreatitis: Code(s): K86.1 - Other chronic pancreatitis Category: Medical Plan: as above Coding Level of Care Code Tele Est Pt Level 3 (95149) Diagnoses Chronic pancreatitis K86.1
== END 2025-06-17 14:30 | disposition home or self-care (01) ==
LOC: HO.HGI 11:18
PROVIDERS: PCP Nurse Practitioner Family; Visit Provider Internal Medicine Gastroenterology
DX: K86.1 Other chronic pancreatitis (principal)
CPT/HCPCS: 99213

== ENCOUNTER 2025-08-05 10:46 | Outpatient (AMB) | payer MEDICARE, MEDICAID, SELFPAY ==
--- NOTE | 2025-08-05 10:51 | MHC.OFFVIS ---
Vital Signs 08/05/25 10:53 Height 5 ft 2 in Weight 99 lb 3.328 oz BMI 18.1 BP 102/57 L Blood Pressure Location Lt brachial Position Sitting Pulse 99 Intake Visit Reasons: 6 mon polyps abnormal bowel habits Intake Note: Larissa presents in the office as a 6 month follow up. CC: cramping, mucus in the stools. She states she had a CT scan and something was spotted on her pancreas. Market Asset Protection Manager Required: No Allergies codeine (CODEINE) Allergy (Mild, Verified 08/05/25 10:54) RASH HPI HPI 6 mon polyps abnormal bowel habits: Details: 55 yr old f called for f/u RECAP: She had been having diarrhea when initially seen 2018 she had egd/colonoscopy with polyps removed but no colitis or microscopic colitis imaging revealed chronic panc changes, igG4 was elevated and ESR high too MRI and Ct chest done, pancreas stable, but new lung nodule right lung --suspicious for neoplasia, --had bx and confirmed to have lung cancer, saw oncologist Inez she has been long time smoker completed XRT and chemo for lung ca and being monitored she did have sharp epigastric pain, once or twice every few weeks, can be severe and last for few hours not worse or related to food, can be better with stretching bloating denied diarrhea or constipation appetite had poor sleep is variable stopped trental due to diarrhea, back on creon stress is manageable labs: cbc normal, BMp normal, ESR mild raised, IgG4 mild raised, CRP neg stool fat neg, elastase normal Other tests: CT scan at [facility] recently chronic pancreatitis, no cancer recurrence [facility] 05/21/2020--nml, neg for gastroparesis MRI 04/2020-- panc cysts, complex hemorrhagic cysts left kidney EGD: DONE FOR ONGOING EARLY SATIETY--06/2020--SHORT seg barretts. reduced gastric motility noted bx--barretts, no dysplasia, no amyloid noted, diffuse staining for IgG4 in GEJ!no sign activity in duodenum or stomach, maybe minor in duodenum MRI 07/2020-- stable pancreas with dilated radicles She was referred to urology due to complex kidney cysts tried her on levsin for abdo pain considered trial of budeosnide if ongoing sx she had recurrence of lung ca and now on kaytruda I did colonoscopy 10/21-- TA removed x 2 but prep was not v good EGD/[place] : 04/21 Endoscopy Findings: gastritis duodenitis esophagitis inlet patch Colonoscopy Findings: colon polyps internal hemorrhoids Balloon dilation of esophagus, and pylorus, bx with minimal inflammation tubular adenoma and hyperplastic polyps removed INTERIM: trying to take more protein she has been taking creon and it seems to be helping she has cramps usu before going to the bathrooms heat seems to help EXAM: GENERAL: The patient is relaxed VITAL SIGNS:see workflow HEENT: Nonicteric sclerae, PERRLA, EOMI. Oropharynx clear. Moist mucous membranes. Conjunctivae appear well perfused. No thyroid mass. CHEST: Chest wall is nontender. HEART: Regular rate and rhythm without murmurs. LUNGS: Clear to auscultation bilaterally. ABDOMEN: Soft, positive bowel sounds, nontender, no organomegaly.no flank tenderness SKIN: No rash, no excessive bruising, petechiae, or purpura. NEUROLOGIC: Cranial nerves II-XII intact without motor/sensory deficit. Psych: normal affect Assessment & Plan (1) Pancreatic cyst: (2) Renal cyst: (3) Colon polyps: (4) Chronic pancreatitis: 5/ early satiety probably functional dyspepsia 6/ lung cancer, active surveillance--recent new nodule on left lung 21 mm 7/ possible SMA syndrome PLAN: 1/ advised on trying to sip on her drinks, try making her own shakes 2/ cont with creon 3/ us SMA PFSH Medical History Pathological fracture of rib Chronic pancreatitis Hepatic steatosis COPD (chronic obstructive pulmonary disease) Pancreatic cyst Lung cancer Renal cyst Cyst of ovary Surgical History Hx of appendectomy Hx of cataract extraction Hx of ultrasound guided needle biopsy of lung Hx of endoscopy History of colonoscopy Hx of tubal ligation Family History Mother No problems noted. 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
[2025-08-05 10:53] VITALS: BP 102/57; PULSE 99; BMI 18.1
== END 2025-08-05 11:33 | disposition home or self-care (01) ==
PROVIDERS: PCP Physician Assistant; Visit Provider Internal Medicine Gastroenterology
DX: K55.1 Chronic vascular disorders of intestine (principal)
CPT/HCPCS: 99213

== ENCOUNTER → 2025-08-05 10:46 | Outpatient (BNVA) | payer MEDICARE, MEDICAID, SELFPAY | PROVIDERS: PCP Physician Assistant; Visit Provider Internal Medicine Gastroenterology | DX: K55.1 Chronic vascular disorders of intestine (principal); Z72.0 Tobacco use; Z85.9 Personal history of malignant neoplasm, unspecified | CPT/HCPCS: 99212 ==